=== PATIENT | female | born 1975 | race Caucasian/White ===

== ENCOUNTER 2017-07-09 22:48 | Emergency (ER) | payer OTHER, MEDICARE ==
[2017-07-09 23:37] LABS: URINE BILIRUBIN - DIPSTICK NEGATIVE (NEGATIVE); URINE BLOOD DIPSTICK NEGATIVE (NEGATIVE); URINE CLARITY CLEAR; URINE COLOR YELLOW; URINE GLUCOSE - DIPSTICK >=1000 mg/dL (NEGATIVE); URINE KETONE NEGATIVE (NEGATIVE); URINE LEUK ESTERASE NEGATIVE (NEGATIVE); URINE NITRITE - DIPSTICK NEGATIVE (Negative); URINE PH 5.5 (4.5-8.0); URINE PROTEIN - DIPSTICK NEGATIVE (NEG-TRACE); URINE SPECIFIC GRAVITY <=1.005; URINE UROBILINOGEN - DIPSTICK 0.2 E.U./dL (0.2)
[2017-07-09 23:42] LABS: HEMATOCRIT 37.3 % (37.0-47.0); HEMOGLOBIN 12.3 g/dl (12.0-16.0); IMMATURE GRANULOCYTES 0.7 % (0.0-1.0); MEAN CELL VOLUME 71.9 fL CALC (80.0-100.0); MEAN CORPUSCULAR HGB 23.7 pG CALC (26.0-32.0); NEUT# 6.06 thou/uL (2.00-7.15); RED BLOOD COUNT 5.19 mill/uL (4.20-5.60); RED CELL DISTRI WIDTH 14.4 % (11.5-15.5)
[2017-07-09 23:53] LABS: BARBITURATES NEGATIVE (NEGATIVE); COCAINE NEGATIVE (NEGATIVE); METHADONE NEGATIVE (NEGATIVE); OXCYCODONE NEGATIVE (NEGATIVE); TETRAHYDROCANNABIONOL NEGATIVE (NEGATIVE); TRICYLIC ANTIDEPRESSANTS NEGATIVE (NEGATIVE)
[2017-07-10 00:30] LABS: INTERNATIONAL NORMALIZED RATIO 0.9 RATIO (0.7-1.3); PROTHROMBIN TIME 9.9 SECONDS (9.0-12.5)
[2017-07-10 00:31] LABS: ALBUMIN 4.3 g/dL (3.2-5.0); ALKALINE PHOSPHATASE 80 u/l (38-126); ANION GAP 20 (6-22 (CALC)); BILIRUBIN, TOTAL 0.4 mg/dL (0.0-1.4); BUN 13 mg/dL (7-17); BUN/CREATININE RATIO 16 (12-20 (CALC)); CALCIUM 9.3 mg/dL (8.4-10.2); CARBON DIOXIDE 24 mmol/l (22-30); CHLORIDE 100 mmol/l (95-108); CREATININE 0.8 mg/dL (0.5-1.0); ETHYL ALCOHOL 159 mg/dl (0-30); GFR > 60 ML/MIN (>=60 (CALC)); GFR FOR AFR.AMER. > 60 ML/MIN (>=60 (CALC)); GLUCOSE 366 mg/dL (65-105); POTASSIUM 4.4 mmol/l (3.5-5.1); SGOT/AST 35 u/l (14-36); SGPT/ALT 39 u/l (9-52); SODIUM 139 mmol/l (137-146)
[2017-07-10] MEDS ORDERED: ULTRAM50 M1 PO (03:07)
[2017-07-10 03:30] VITALS: BP 148/77
== END 2017-07-10 03:27 | disposition home or self-care (01) | DRG 897 ==
LOC: ED 22:48
PROVIDERS: Emergency Medicine
DX: F10.129 Alcohol abuse with intoxication, unspecified (principal); S00.83XA Contusion of other part of head, initial encounter; E11.65 Type 2 diabetes mellitus with hyperglycemia; F99 Mental disorder, not otherwise specified; V48.5XXA Car driver injured in noncollision transport accident in traffic accident, initial encounter